=== PATIENT | female | born 1975 | race Caucasian/White ===

== ENCOUNTER → 2018-02-14 | Outpatient (CLI) | payer BC ==
[~2018-02-14] MED LIST: L-LYSINE500 MG PO
== END ==
LOC: MC.RAD 10:53
DX: Z12.31 Encounter for screening mammogram for malignant neoplasm of breast (principal)

== ENCOUNTER → 2019-03-10 | Outpatient (CLI) | payer BC | LOC: MC.RAD 09:07 | DX: Z12.31 Encounter for screening mammogram for malignant neoplasm of breast (principal) ==

== ENCOUNTER → 2019-03-24 | Outpatient (CLI) | payer BC | LOC: COL.RAD 08:01 | DX: M25.512 Pain in left shoulder (principal) | CPT/HCPCS: A9585; Q9967 ==

== ENCOUNTER → 2020-03-14 | Outpatient (CLI) | payer BC | LOC: MC.RAD 08:57 | DX: Z12.31 Encounter for screening mammogram for malignant neoplasm of breast (principal) ==

== ENCOUNTER → 2021-04-10 | Outpatient (CLI) | payer BC | LOC: MC.RAD 08:54 | DX: Z12.31 Encounter for screening mammogram for malignant neoplasm of breast (principal) ==

== ENCOUNTER → 2022-05-19 | Outpatient (CLI) | payer OTHER | LOC: MC.RAD 10:11 | DX: Z12.31 Encounter for screening mammogram for malignant neoplasm of breast (principal) ==

== ENCOUNTER → 2023-05-26 | Outpatient (CLI) | payer BC | LOC: MC.RAD 08:18 | DX: Z12.31 Encounter for screening mammogram for malignant neoplasm of breast (principal) ==